=== PATIENT | male | born 1955 | race Caucasian/White ===

== ENCOUNTER 2020-12-04 09:40 | Emergency (ER) | payer OTHER ==
[2020-12-04] MEDS ORDERED: NORMAL SALINE 1000 ML 1,000 ML IV ONE ×2 (11:13→12:55)
[2020-12-04] MEDS ORDERED: ONDANSETRON HCL INJ/PF 4 MG/2 ML SDV IV ONE (11:14)
[2020-12-04] MEDS ORDERED: PANTOPRAZOLE SODIUM 40 MG VIAL IV ONE (11:14)
[2020-12-04 11:30] LABS: ABSOLUTE BASOPHILS # (AUTO) 0.1 10^3/uL (0.0-0.2); ABSOLUTE LYMPHOCYTES (AUTO) 1.1 10^3/uL (0.5-4.7); ABSOLUTE MONOCYTES (AUTO) 0.8 10^3/uL (0.1-1.4); ABSOLUTE NEUT (AUTO) 6.5 10^3/uL (1.7-8.2); BASOPHILS % (AUTO) 1.2 % (0-2); HEMATOCRIT 34.6 % (37.9-51.0); HEMOGLOBIN 11.6 g/dL (13.5-17.0); LYMPHOCYTES % (AUTO) 13.1 % (13-45); MEAN CORPUSCULAR HEMOGLOBIN 31.6 pg (27.0-33.4); MEAN CORPUSCULAR HGB CONC 33.7 g/dL (32.0-36.0); MEAN CORPUSCULAR VOLUME 94 fl (80-97); MONOCYTES % (AUTO) 8.9 % (3-13); PLATELET COUNT 170 10^3/uL (150-450); RED BLOOD COUNT 3.69 10^6/uL (4.35-5.55); RED CELL DISTRIBUTION WIDTH 11.9 % (11.5-14.0); SEGMENTED NEUTROPHILS % (AUTO) 76.8 % (42-78); TOTAL CELLS COUNTED % (AUTO) 100 %; WHITE BLOOD COUNT 8.5 10^3/uL (4.0-10.5)
[2020-12-04 11:40] LABS: INTERNATIONAL RATION (INR) 1.16
[2020-12-04 11:43] LABS: ALBUMIN 3.6 g/dL (3.5-5.0); ALKALINE PHOSPHATASE 61 U/L (38-126); ANION GAP 6 (5-19); ASPARTATE AMINO TRANSFERASE 54 U/L (17-59); BILIRUBIN,DIRECT 0.4 mg/dL (0.0-0.4); BILIRUBIN,TOTAL 1.5 mg/dL (0.2-1.3); BLOOD UREA NITROGEN 41 mg/dL (7-20); CARBON DIOXIDE 24 mmol/L (22-30); CHLORIDE 103 mmol/L (98-107); GLUCOSE 155 mg/dL (75-110); POTASSIUM 4.8 mmol/L (3.6-5.0); TOTAL PROTEIN 6.5 g/dL (6.3-8.2)
--- NOTE | 2020-12-04 11:50 | RADIOLOGY REPORT (SQ) ---
EXAM DESCRIPTION: CHEST SINGLE VIEW IMAGES COMPLETED DATE/TIME: 12/04/2020 11:32 am REASON FOR STUDY: nausea/vomiting/ COMPARISON: None. EXAM PARAMETERS: NUMBER OF VIEWS: One view. TECHNIQUE: Single frontal radiographic view of the chest acquired. RADIATION DOSE: NA LIMITATIONS: None. FINDINGS: LUNGS AND PLEURA: No opacities, masses or pneumothorax. No pleural effusion. MEDIASTINUM AND HILAR STRUCTURES: No masses. Contour normal. HEART AND VASCULAR STRUCTURES: Heart normal in size. Normal vasculature. BONES: No acute findings. HARDWARE: None in the chest. OTHER: No other significant finding. IMPRESSION: NO ACUTE RADIOGRAPHIC FINDING IN THE CHEST. TECHNICAL DOCUMENTATION: JOB ID: [id number] 2010 [employer]- All Rights Reserved Reading location - IP/workstation name: [email or web address]
--- NOTE | 2020-12-04 12:30 | ER Document Report ---
Entered by EMILY MORALES SCRIBE 12/04/20 1042 Acting as scribe for:TIERA FUNK MD ED GI/ - General Chief Complaint: Black/Tarry Stools Stated Complaint: BLACK STOOLS Time Seen by Provider: 12/04/20 10:03 Mode of Arrival: Ambulatory Information source: Patient Notes: This 65 year old male patient with no significant past medical history presents to the ED today with complaints of black stools that he noticed around 0500 this morning. Patient states that after dinner last night he felt nauseous and had an episode of emesis that was "black like coffee." Denies any abdominal pain or distension. He notes having a colonoscopy x5 years ago that revealed polyps and he is due to go back this year. He mentions bruising easily, but denies taking any blood thinners, aspirin, iron tablets, or Pepto Bismol. Denies history of a blood disorder. He does admit to taking OTC Ibuprofen every day for back pain secondary to work. No nausea at this time. Patient is visiting from [place]. - Related Data Allergies/Adverse Reactions: No Known Allergies Allergy (Unverified 12/04/20 09:49) Past Medical History - General Information source: Patient - Social History Smoking Status: Never Smoker Cigarette use (# per day): No Chew tobacco use (# tins/day): No Smoking Education Provided: No Frequency of alcohol use: Social Drug Abuse: None Lives with: Spouse/Significant other Family History: Reviewed & Not Pertinent GI Medical History: Reports: Hx Colonoscopy - x5 years ago Surgical Hx: Negative Review of Systems - Review of Systems Constitutional: No symptoms reported EENT: No symptoms reported Cardiovascular: No symptoms reported Respiratory: No symptoms reported Gastrointestinal: See HPI, Nausea, Vomiting, Black stools. denies: Abdomen distended, Abdominal pain Genitourinary: No symptoms reported Male Genitourinary: No symptoms reported Musculoskeletal: No symptoms reported Skin: No symptoms reported Hematologic/Lymphatic: See HPI, Easy bruising Neurological/Psychological: No symptoms reported -: Yes All other systems reviewed and negative Physical Exam - Vital signs Vitals: Temp Pulse Resp BP Pulse Ox 98.4 F 104 H 20 132/69 H 99 12/04/20 09:46 12/04/20 09:46 12/04/20 09:46 12/04/20 09:46 12/04/20 09:46 - General General appearance: Appears well, Alert In distress: None - HEENT Head: Normocephalic, Atraumatic Eyes: Normal. No: Pale conjunctiva Extraocular movements intact: Yes Pupils: PERRL Mucous membranes: Normal Pharynx: Normal. No: Blood in hypopharynx Neck: Normal, Supple - Respiratory Respiratory status: No respiratory distress Chest status: Nontender Breath sounds: Normal Chest palpation: Normal - Cardiovascular Rhythm: Regular Heart sounds: Normal auscultation Murmur: No Normal capillary refill: Yes - < 2 seconds - Abdominal Inspection: Obese Distension: No distension Bowel sounds: Normal Tenderness: Nontender - Abdomen soft Organomegaly: No organomegaly - Rectal Stool: Heme positive, Black, See lab result Hemorrhoids: No: Mass Prostate: Normal - Nontender. No nodules. 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 No: Edema - Neurological Neuro grossly intact: Yes Orientation: AAOx4 [place] Coma Scale Eye Opening: Spontaneous [place] Coma Scale Verbal: Oriented [place] Coma Scale Motor: Obeys Commands [place] Coma Scale Total: 15 - Psychological Associated symptoms: Normal affect, Normal mood - Skin Skin Temperature: Warm Skin Moisture: Dry Skin Color: Lynn Course - Re-evaluation Re-evalutation: 12/04/20 16:36 Patient resting comfortably not showing any signs of distress no nausea vomiting no abdominal pain - Vital Signs Vital signs: Temp Pulse Resp BP Pulse Ox 98.4 F 104 H 17 136/83 H 99 12/04/20 09:46 12/04/20 09:46 12/04/20 14:01 12/04/20 14:01 12/04/20 14:01 12/04/20 16:36 Vital signs stable sinus tachycardia at 104 - Laboratory Results Result Diagrams: 12/04/20 10:31 12/04/20 10:31 Laboratory Results Interpreted: 12/04/20 12/04/20 12/04/20 10:31 10:31 12:11 RBC 3.69 L Hgb 11.6 L Hct 34.6 L Sodium 133.4 L BUN 41 H Glucose 155 H Total Bilirubin 1.5 H Urine Ketones TRACE H Laboratories unremarkable for any acute process. No critical lab values Critical Laboratory Results Reviewed: No Critical Results - Radiology Results Radiology Results Interpreted: 12/04/20 16:25 Chest X-Ray 12/04/20 11:10 IMPRESSION: NO ACUTE RADIOGRAPHIC FINDING IN THE CHEST. Abdomen/Pelvis CT 12/04/20 14:00 IMPRESSION: 1. Severe hepatic steatosis. 2. Numerous punctate pancreatic calcifications suggestive of sequelae from chronic pancreatitis. No evidence of acute pancreatitis. 12/04/20 16:37 Chest x-ray shows no acute findings none chest. Abdomen pelvis CT shows severe hepatic steatosis steatosis and punctate pancreatic calcifications from chronic pancreatitis questionable. No evidence of acute pancreatitis. Critical Radiology Results Reviewed: No Critical Results Discharge - Discharge Clinical Impression: Gastritis, Melena, Nausea & vomiting Condition: Stable Disposition: HOME, SELF-CARE Instructions: Antinausea Medication ([facility]) Additional Instructions: Gastritis You have an inflammation of the stomach called gastritis. This commonly causes upper abdominal pain, nausea, and vomiting. In severe cases, bleeding of the stomach lining can occur. Gastritis can be caused by bacteria or viruses, alcohol, or stomach-irritating drugs. Begin with sips of clear liquids. Take increasing amounts of fluid over the first 24 hours. Then start small amounts of bland foods (such as dry toast, applesauce, mashed potato). Gradually resume your usual diet. You should take antacids every two hours until the pain has subsided. Acid-suppressing drugs may be prescribed as well. Avoid aspirin, caffeine, tobacco, and alcohol. If the abdominal pain worsens, or there is evidence of major bleeding in the stomach (such as black, tarry stool, bloody or black vomit, or lightheadedness), you should return immediately. Call the doctor if you aren't improved in 24 to 36 hours. Recommend that you discontinue use of ibuprofen. Recommend Tylenol if needed for any pain. You have been prescribed medications called Protonix for your stomach and also Zofran if needed for nausea. Do follow-up with your primary ca re provider as soon as you get back home. Prescriptions: Ondansetron [Zofran Odt 4 mg Tablet] 1 - 2 tab PO Q4HP PRN #20 tab.rapdis PRN Reason: Pantoprazole Sodium [Protonix [address] Tablet] 40 mg PO QAM 30 Days #30 tablet.dr Minaya personally performed the services described in the documentation, reviewed and edited the documentation which was dictated to the scribe in my presence, and it accurately records my words and actions.
[2020-12-04 12:53] LABS: APPEARANCE,URINE CLEAR; BILIRUBIN,URINE NEGATIVE (NEGATIVE); COLOR,URINE YELLOW; GLUCOSE, URINE NEGATIVE (NEGATIVE); KETONES,URINE TRACE mg/dL (NEGATIVE); LEUKOCYTE ESTERASE,URINE NEGATIVE (NEGATIVE); NITRITE,URINE NEGATIVE (NEGATIVE); PROTEIN,URINE NEGATIVE (NEGATIVE); URINE SPECIFIC GRAVITY 1.021; UROBILINOGEN,URINE NEGATIVE mg/dL (<2.0)
--- NOTE | 2020-12-04 15:28 | RADIOLOGY REPORT (SQ) ---
EXAM DESCRIPTION: CT ABD/PELVIS WITH IV ORAL IMAGES COMPLETED DATE/TIME: 12/04/2020 2:10 pm REASON FOR STUDY: nausea/vomiting/. Coffee ground emesis 1 night ago. COMPARISON: None. TECHNIQUE: CT scan of the abdomen and pelvis performed using helical scanning technique with dynamic intravenous contrast injection. No oral contrast. Images reviewed with lung, soft tissue, and bone windows. Reconstructed coronal and sagittal MPR images reviewed. Delayed images for evaluation of the urinary system also acquired. All images stored on PACS. All CT scanners at this facility use dose modulation, iterative reconstruction, and/or weight based d osing when appropriate to reduce radiation dose to as low as reasonably achievable (ALARA). [facility]: Dose Right [facility]: CareDose [facility]: Dose Right [facility]: Teradose 4D [facility]: Golden Reviews CONTRAST TYPE AND DOSE: contrast/concentration: Isovue 350.00 mmol/ml; Total Contrast Delivered: 98. 0 ml; Total Saline Delivered: 72.0 ml RENAL FUNCTION: GFR > 60. RADIATION DOSE: CT Rad equipment meets quality standard of care and radiation dose reduction techniq ues were employed. CTDIvol: 11.3 - 15.7 mGy. DLP: 1646 mGy-cm.. LIMITATIONS: None. FINDINGS: LOWER CHEST: No significant findings. No nodules or infiltrates. LIVER: The liver has normal size and contour. There is severe diffuse hepatic steatosis. No focal h epatic mass. Hepatic and portal veins are patent. No biliary ductal dilation. SPLEEN: Normal size. No focal lesions. PANCREAS: The pancreas has normal contour. There are numerous punctate calcifications within the kauffman creatic parenchyma. No focal solid mass. No cystic lesion. No pancreatic ductal dilation. No hannah pancreatic inflammation. GALLBLADDER: No identified stones by CT criteria. No inflammatory changes to suggest cholecystitis. ADRENAL GLANDS: No significant masses or asymmetry. RIGHT KIDNEY AND URETER: No solid masses. No significant calcifications. No hydronephrosis or hyd roureter. LEFT KIDNEY AND URETER: No solid masses. No significant calcifications. No hydronephrosis or hydr oureter. AORTA AND VESSELS: No aneurysm. No dissection. Renal arteries, SMA, celiac without stenosis. RETROPERITONEUM: No retroperitoneal adenopathy, hemorrhage or masses. BOWEL AND PERITONEAL CAVITY: No masses or inflammatory changes. No free fluid or peritoneal masses. APPENDIX: Normal. PELVIS: No mass. No free fluid. Normal bladder. ABDOMINAL WALL: No masses. No hernias. BONES: No significant or acute findings. OTHER: No other significant finding. IMPRESSION: 1. Severe hepatic steatosis. 2. Numerous punctate pancreatic calcifications suggestive of sequelae from chronic pancreatitis. No evidence of acute pancreatitis. TECHNICAL DOCUMENTATION: JOB ID: [id number] Quality ID # [id number]: Final reports with documentation of one or more dose reduction techniques (e.g., Au tomated exposure control, adjustment of the mA and/or kV according to patient size, use of iterative reconstruction technique) 2010 [email or web address]- All Rights Reserved Reading location - IP/workstation name: [email or web address]
[2020-12-04 17:03] VITALS: BP 141/82
== END 2020-12-04 17:03 | disposition home or self-care (01) ==
LOC: ER 09:40
DX: K29.70 Gastritis, unspecified, without bleeding (principal); K92.1 Melena; R11.2 Nausea with vomiting, unspecified; Z79.899 Other long term (current) drug therapy
CPT/HCPCS: 99285; 96361; 96374; 96375; 36415; 83605; 83690; 85025; 85610; 82270; 80053; 81001; 71045; 74177; C9113; J2405; J7030